=== PATIENT | female | born 1960 | race Caucasian/White ===

== ENCOUNTER 2020-05-19 15:38 | Observation (INO) | payer MEDICARE, MEDICAID ==
[~2020-05-19] VITALS: Ht 157 cm; Wt 120.5 kg
[2020-05-19] VITALS (10 sets, daily range): BP systolic 107–168; BP diastolic 81–100
--- NOTE | 2020-05-19 15:40 | ED General ---
General Stated Complaint: CHEST PAIN Source of Information: Patient History of Present Illness Date Seen by Provider: May 19, 2020 Time Seen by Provider: 15:39 Initial Comments Patient is a 59-year-old female with past medical history of hypertension who comes to the emergency department today complaining of chest pain. She complains of sternal chest pain with onset about 1 hour prior to presentation. Symptoms began while she was walking crossed her living room. Her pain is improved with rest and worsens with activity. Pain radiates through to the back but no radiation to the jaw, shoulder, or arms. She denies ever having pain similar to this in the past. She did not write out in a sweat. She had no palpitations or lightheadedness but did feel mildly short of breath. This also improved with activity. She has a known history of COPD. Denies personal history of coronary artery disease. She used to be a smoker but quit many years earlier. No recent illness. No fever. Allergies and Home Medications Allergies Coded Allergies: No Known Drug Allergies (Unverified , 05/19/20) Home Medications Furosemide 40 Mg Tablet, 40 MG PO DAILY, (Reported) Lisinopril 40 Mg Tablet, 40 MG PO DAILY, (Reported) Multivitamin 1 Each Capsule, 1 EACH PO DAILY, (Reported) Potassium Chloride 20 Meq Tablet.er, 20 MEQ PO DAILY, (Reported) [Vitamin D] , 2,000 INTLU PO DAILY, (Reported) Patient Home Medication List Home Medication List Reviewed: Yes Review of Systems Review of Systems Constitutional: no symptoms reported EENTM: no symptoms reported Respiratory: no symptoms reported Cardiovascular: see HPI Gastrointestinal: no symptoms reported Genitourinary: no symptoms reported Musculoskeletal: no symptoms reported Skin: no symptoms reported All Other Systems Reviewed Negative Unless Noted: Yes Physical Exam Vital Signs Vital Signs - First Documented Capillary Refill : Height, Weight, BMI Height: '" Weight: lbs. oz. kg; BMI Method: General Appearance: No Apparent Distress, WD/WN Neck: Full Range of Motion Respiratory: Chest Non Tender, Lungs Clear Cardiovascular: Regular Rate, Rhythm Gastrointestinal: Normal Bowel Sounds Neurologic/Psychiatric: Alert, Oriented x3 Skin: Normal Color, Warm/Dry Progress/Results/Core Measures Suspected Sepsis SIRS Temperature: Pulse: Respiratory Rate: Laboratory Tests 05/19/20 15:48: White Blood Count 7.4 Blood Pressure / Mean: Laboratory Tests 05/19/20 15:48: Creatinine 0.89, Platelet Count 207 Results/Orders Lab Results Laboratory Tests Test 05/19/20 15:48 Range/Units White Blood Count 7.4 4.3-11.0 10^3/uL Red Blood Count 4.13 L 4.35-5.85 10^6/uL Hemoglobin 13.6 11.5-16.0 G/DL Hematocrit 40 35-52 % Mean Corpuscular Volume 98 80-99 FL Mean Corpuscular Hemoglobin 33 25-34 PG Mean Corpuscular Hemoglobin Concent 34 32-36 G/DL Red Cell Distribution Width 12.5 10.0-14.5 % Platelet Count 207 130-400 10^3/uL Mean Platelet Volume 9.9 7.4-10.4 FL Neutrophils (%) (Auto) 55 42-75 % Lymphocytes (%) (Auto) 33 12-44 % Monocytes (%) (Auto) 6 0-12 % Eosinophils (%) (Auto) 4 0-10 % Basophils (%) (Auto) 1 0-10 % Neutrophils # (Auto) 4.1 1.8-7.8 X 10^3 Lymphocytes # (Auto) 2.5 1.0-4.0 X 10^3 Monocytes # (Auto) 0.4 0.0-1.0 X 10^3 Eosinophils # (Auto) 0.3 0.0-0.3 10^3/uL Basophils # (Auto) 0.1 0.0-0.1 10^3/uL D-Dimer 0.33 0.00-0.49 UG/ML Sodium Level 138 135-145 MMOL/L Potassium Level 4.4 3.6-5.0 MMOL/L Chloride Level 101 98-107 MMOL/L Carbon Dioxide Level 26 21-32 MMOL/L Anion Gap 11 5-14 MMOL/L Blood Urea Nitrogen 15 7-18 MG/DL Creatinine 0.89 0.60-1.30 MG/DL Estimat Glomerular Filtration Rate > 60 BUN/Creatinine Ratio 17 Glucose Level 109 H 70-105 MG/DL Calcium Level 8.9 8.5-10.1 MG/DL Troponin I < 0.30 <0.30 NG/ML My Orders Orders - TONA DEVI DO Ed Iv/Invasive Line Start (05/19/20 15:40) Cbc With Automated Diff (05/19/20 15:40) Basic Metabolic Panel (05/19/20 15:40) Troponin I Fs (05/19/20 15:40) Ekg Tracing (05/19/20 15:40) Chest 1 View Ap/Pa Only (05/19/20 15:40) Fibrin Degradation Products (05/19/20 15:41) Aspirin Chewable Tablet (Baby Aspirin Ch (05/19/20 16:15) Antacid Suspension (Mylanta Suspension (05/19/20 16:15) Lidocaine 2% Pf 5 Ml (Xylocaine 2% Pf) (05/19/20 16:15) Famotidine Injection (Pepcid Injection) (05/19/20 16:15) Lidocaine 2% Viscous 15 Ml (Xylocaine Vi (05/19/20 16:15) Lidocaine 2% Viscous 15 Ml (Xylocaine Vi (05/19/20 16:19) Probnp Fs (05/19/20 16:52) Ekg Tracing (05/19/20 17:06) Medications Given in ED Current Medications Medications Dose Ordered Sig/Kae Route Start Time Stop Time Status Last Admin Dose Admin Al Hydrox/Mg Hydrox/Simethicone 30 ml ONCE ONCE PO 05/19/20 16:15 05/19/20 16:16 DC 05/19/20 16:25 30 ML Aspirin 325 mg ONCE ONCE PO 05/19/20 16:15 05/19/20 16:16 DC 05/19/20 16:24 324 MG Famotidine 20 mg ONCE ONCE IVP 05/19/20 16:15 05/19/20 16:25 DC 05/19/20 16:24 20 MG Lidocaine HCl 5 ml ONCE ONCE PO 05/19/20 16:15 05/19/20 16:22 DC 05/19/20 16:25 5 ML Vital Signs/I&O 05/19/20 05/19/20 15:40 15:40 Temp 37.2 Pulse 87 Resp 20 B/P (MAP) 181/111 (134) Pulse Ox 96 O2 Delivery Room Air Room Air Capillary Refill : Progress Note : Time: 15:55 Progress Note Patient seen and examined. c/o exertional CP that started one hour prior to presentation. EKG is negative for findings concerning for ischemia. Standard ACS work up ordered and will give ASA along with pepcid and GI cocktail. 17:00: All initial results are completed. D-dimer is not elevated. Troponin is not elevated. Chest x-ray does not reveal acute cause for her symptoms. Her lungs continue to be clear. Patient is ambulated about the department and becomes visibly dyspneic. She has onset again of sternal chest pain. She does not desaturate. Repeat EKG is completed immediately upon return to her room but no acute ST changes are present. Her pain then subsequently improves again while she is at rest. Workup thus far is reassuring but with recurrent chest pain on exertion, patient would meet admission criteria. I spoke to Dr. Hernandez who was willing to accept the patient at [facility] in [place] for admission. I also spoke to the towel folder filtration supervisor, Dr. Chavarria, to notify of nonemergent consultation for this patient. Patient will be transferred via EMS. All results are explained to her and all of her questions are answered. She is agreeable to the plan of care. ECG Initial ECG Impression Date: May 19, 2020 Initial ECG Impression Time: 15:45 Initial ECG Rate: 84 Initial ECG Rhythm: Normal Sinus Initial ECG Impression: Normal Initial ECG Comparisson: No Previous ECG Available Departure Communication (Admissions) Time/Spoke to Admitting Phy: 17:00 Dr. Hernandez Impression Primary Impression: Chest pain Additional Impression: Chest pain on exertion Disposition: ADMITTED INPATIENT Condition: Stable Admissions Decision to Admit Reason: Admit from ER (General) Decision to Admit/Date: May 19, 2020 Time/Decision to Admit Time: 17:00 TONA DEVI DO May 19, 2020 15:40
[2020-05-19 16:07] LABS: BASOPHILS # (AUTO) 0.1 10^3/uL (0.0-0.1); BASOPHILS % (AUTO) 1 % (0-10); EOSINOPHILS # (AUTO) 0.3 10^3/uL (0.0-0.3); EOSINOPHILS % (AUTO) 4 % (0-10); HEMATOCRIT 40 % (35-52); HEMOGLOBIN 13.6 G/DL (11.5-16.0); LYMPHOCYTES # (AUTO) 2.5 X 10^3 (1.0-4.0); LYMPHOCYTES % (AUTO) 33 % (12-44); MEAN CORPUSCULAR HEMOGLOBIN 33 PG (25-34); MEAN CORPUSCULAR HGB CONC 34 G/DL (32-36); MEAN CORPUSCULAR VOLUME 98 FL (80-99); MEAN PLATELET VOLUME 9.9 FL (7.4-10.4); MONOCYTES # (AUTO) 0.4 X 10^3 (0.0-1.0); MONOCYTES % (AUTO) 6 % (0-12); NEUTROPHILS # (AUTO) 4.1 X 10^3 (1.8-7.8); NEUTROPHILS % (AUTO) 55 % (42-75); PLATELET COUNT 207 10^3/uL (130-400); RED CELL DISTRIBUTION WIDTH 12.5 % (10.0-14.5); WHITE BLOOD COUNT 7.4 10^3/uL (4.3-11.0)
[2020-05-19] MEDS ORDERED: LISI40TA PO (16:13)
[2020-05-19] MEDS ORDERED: TIOT4MIS2 INH (16:13)
[2020-05-19] MEDS ORDERED: FURO40TA4 PO (16:13)
[2020-05-19] MEDS ORDERED: POTA-51 PO (16:13)
[2020-05-19] MEDS ORDERED: Vitamin D PO (16:13)
[2020-05-19] MEDS ORDERED: FLUT1BLS12 INH (16:13)
[2020-05-19] MEDS ORDERED: MULT1CAP27 PO (16:13)
[2020-05-19] MEDS ORDERED: LIDOCAINE PF 2% 5 ML (XYLOCAINE) VIAL INH ONE (16:15)
[2020-05-19] MEDS ORDERED: ANTACID SUSP 30 ML UDC (MYLANTA) PO ONE (16:15)
[2020-05-19] MEDS ORDERED: FAMOTIDINE 20MG/2ML IV (PEPCID) IVP ONE (16:15)
[2020-05-19] MEDS ORDERED: LIDOCAINE 2% VISCOUS 15 ML UDC PO ONE (16:15)
[2020-05-19] MEDS ORDERED: ASPIRIN 81 MG CHEW (CHILDREN'S ASA) PO ONE (16:15)
--- NOTE | 2020-05-19 16:16 | Diagnostic Imaging Report ---
EXAM: CHEST 1 VIEW AP/PA ONLY INDICATION: Chest pain. COMPARISON: None. FINDINGS: Normal heart size and central pulmonary vascularity. No focal pulmonary opacity, pleural effusion or pneumothorax. Calcified aorta. No acute osseous finding. IMPRESSION: No acute cardiopulmonary finding. Dictated by: Dictated on workstation # [id number]
[2020-05-19] MEDS ORDERED: LIDOCAINE 2% VISCOUS 15 ML UDC ONE (16:19)
[2020-05-19 16:25] LABS: BUN/CREATININE RATIO 17; CALCIUM 8.9 MG/DL (8.5-10.1); CARBON DIOXIDE 26 MMOL/L (21-32); CHLORIDE 101 MMOL/L (98-107); CREATININE SERUM 0.89 MG/DL (0.60-1.30); GFR ESTIMATED > 60; GLUCOSE 109 MG/DL (70-105); POTASSIUM 4.4 MMOL/L (3.6-5.0); SODIUM 138 MMOL/L (135-145)
[2020-05-19] MEDS ORDERED: Prevacid (16:45)
--- NOTE | 2020-05-19 16:45 | NUR ---
Patient was assisted up to ambulate as experiencing no chest pain and planning a Troponin in 1 hr. Pt was ambulated while monitored at approx 65 [address] hallway pt incurs chest pain returning and becoming SOA. Pt returned to room stopping mid-way to sit in chair. Mild ST depression viewed on ambulation.
--- NOTE | 2020-05-19 16:50 | NUR ---
Dr Mccabe to room to re-assess.
--- NOTE | 2020-05-19 18:00 | NUR ---
Call to EMS Transfer Line and request patient transfer to [facility] CU 7 Overflow Cardiac Stepdown. EMS report the EMS crew out on a call are the next crew up for a transfer and delay until that unit is available.
[2020-05-19 18:04] LABS: INR 0.9 (0.8-1.4)
[2020-05-19] MEDS ORDERED: NITROGLYCERIN 0.4 MG SL TABS BTL 25'S SL PRN (20:30)
[2020-05-19] MEDS ORDERED: morphine INJ 4 MG/ML 1 ML (VIAL/SYRINGE) IV PRN (20:30)
[2020-05-19] MEDS ORDERED: ONDANSETRON 4 MG/2 ML (SDV) Z0FRAN IVP PRN (20:30)
[2020-05-19] MEDS ORDERED: CATHETER FLUSH 10 ML SYR IV PRN (20:45)
[2020-05-19] MEDS: NS IV 1000 ML 1,000 ML IV SCH (23:50)
[2020-05-20] VITALS (11 sets, daily range): BP systolic 134–151; BP diastolic 72–97
[2020-05-20] MEDS ORDERED: ACETAMINOPHEN 325 MG TABLET ONE (02:48)
[2020-05-20] MEDS ORDERED: ACETAMINOPHEN 325 MG TABLET PO PRN (03:00)
[2020-05-20 03:38] LABS: BASOPHILS % (AUTO) 1 % (0-10); EOSINOPHILS # (AUTO) 0.3 10^3/uL (0.0-0.3); EOSINOPHILS % (AUTO) 4 % (0-10); HEMATOCRIT 40 % (35-52); HEMOGLOBIN 13.4 G/DL (11.5-16.0); LYMPHOCYTES % (AUTO) 30 % (12-44); MEAN CORPUSCULAR HEMOGLOBIN 33 PG (25-34); MEAN CORPUSCULAR HGB CONC 34 G/DL (32-36); MEAN CORPUSCULAR VOLUME 99 FL (80-99); MEAN PLATELET VOLUME 10.2 FL (7.4-10.4); MONOCYTES # (AUTO) 0.3 X 10^3 (0.0-1.0); MONOCYTES % (AUTO) 5 % (0-12); NEUTROPHILS # (AUTO) 4.1 X 10^3 (1.8-7.8); NEUTROPHILS % (AUTO) 61 % (42-75); PLATELET COUNT 179 10^3/uL (130-400); RED CELL DISTRIBUTION WIDTH 12.6 % (10.0-14.5); WHITE BLOOD COUNT 6.7 10^3/uL (4.3-11.0)
[2020-05-20 04:05] LABS: ALANINE AMINOTRANSFERASE 41 U/L (0-55); ALBUMIN 3.5 GM/DL (3.2-4.5); ALKALINE PHOSPHATASE 96 U/L (40-136); BILIRUBIN,TOTAL 0.6 MG/DL (0.1-1.0); BUN/CREATININE RATIO 17; CALCIUM 8.8 MG/DL (8.5-10.1); CARBON DIOXIDE 23 MMOL/L (21-32); CHLORIDE 105 MMOL/L (98-107); CHOLESTEROL 203 MG/DL (< 200); CREATININE SERUM 0.86 MG/DL (0.60-1.30); GFR ESTIMATED > 60; GLUCOSE 87 MG/DL (70-105); HDL CHOLESTEROL 73 MG/DL (40-60); POTASSIUM 3.9 MMOL/L (3.6-5.0); SODIUM 140 MMOL/L (135-145); TOTAL PROTEIN 6.5 GM/DL (6.4-8.2); TRIGLYCERIDES 127 MG/DL (<150); VLDL CHOLESTEROL 25 MG/DL (5-40)
[2020-05-20] MEDS: ASPIRIN E.C. 325 MG (ECOTRIN) TABLET PO SCH (07:42)
--- NOTE | 2020-05-20 08:41 | Consultation-Cardiology ---
HPI-Cardiology Cardiology Consultation: Date of Consultation 05/20/20 Time Seen by a Provider: 08:45 Date of Admission 05-19-2020 Attending Physician Katia Hernandez MD Admitting Physician Aron Mason MD Consulting Physician Vivi Chavarria MD HPI: Chief Complaint: Chest pain Ms. Rodriguez is a 59 year old female who presented to [facility] ED with c/o CP which started yesterday while walking across her living room floor. She describes it as a sharp stabbing pain, left sided which radiated through to her back. Mod in intensity. She reports it relieved after a few minutes of resting . She has chronic mild to mod exertional dyspnea which was somewhat worse yesterday. She denies any palpitations yesterday, but does reports she does have episodes of palpitations at night which have woken her up in the past. She has not been evaluated for sleep apnea. She denies any diaphoresis. She has chronic bilat LE swelling which is unchanged in the recent past. No c/o n/v/d. No c/o fever or chills. Review of Systems-Cardiology Review of Systems Constitutional: No chills, No fever, No malaise Eyes: No vision change Ears/Nose/Throat: No epistaxis, No recent hearing loss Respiratory: As described under HPI Cardiovascular: As described under HPI Gastrointestinal: No constipation, No diarrhea, No nausea Genitourinary: No dysuria; hematuria Musculoskeletal: no symptoms reported Skin: No rash on exposed areas, No ulcerations on exposed areas Psychiatric/Neurological: No anxiety, No depression, No seizure, No focal weakness Hematologic: No bleeding abnormalities All Other Systems Reviewed Negative Unless Noted: Yes XNN-[id number]-Eefohz Hx Patient Social History Alcohol Use: Regular Use Recreational Drug Use: No Smoking Status: Former Smoker Type Used: Cigarettes Recent Foreign Travel: No Recent Infectious Disease Expo: No Hospitalization with Isolation: Denies Past Medical History PMH As described under Assessment. Family Medical History Family Medical History: She does not know her biological family history d/t being adopted. Allergies and Home Medications Allergies Coded Allergies: No Known Drug Allergies (Unverified , 05/19/20) Home Medications Albuterol Sulfate 18 Gm Hfa.aer.ad, 2 PUFF INH Q6H PRN for SHORTNESS OF BREATH, (Reported) Cholecalciferol (Vitamin D3) 50 Mcg Capsule, 50 MCG PO HS, (Reported) Fluticasone Propion/Salmeterol 1 Each Blst.w.dev, 1 PUFF INH BID, (Reported) Furosemide 40 Mg Tablet, 40 MG PO HS, (Reported) Lansoprazole 15 Mg Capsule.dr, 15 MG PO HS, (Reported) Lisinopril 40 Mg Tablet, 40 MG PO HS, (Reported) Multivitamin 1 Each Capsule, 1 EACH PO HS, (Reported) Naproxen Sodium 220 Mg Tablet, 220 MG PO Q8H PRN for PAIN-MILD (1-4), (Reported) Potassium Chloride 10 Meq Tablet.er, 20 MEQ PO HS, (Reported) TAKES 2 (10MEQ) TABS Tiotropium Hines 4 Gm Mist.inhal, 2 PUFF INH HS, (Reported) Physical Exam-Cardiology Physical Exam Vital Signs/I&O 05/21/20 05/21/20 05/21/20 05/21/20 04:40 07:04 08:00 08:00 Temp 36.5 36.6 Pulse 85 63 65 Resp 18 16 B/P (MAP) 169/79 (109) 191/96 (127) Pulse Ox 97 96 96 O2 Delivery Room Air Room Air Room Air 05/21/20 12:37 Pulse 90 Resp 16 B/P (MAP) 168/78 (108) Pulse Ox 97 O2 Delivery Room Air 05/21/20 00:00 Intake Total 1950 ml Balance 1950 ml Capillary Refill : Less Than 3 Seconds Constitutional: AAO x 3, well-developed, well-nourished HEENT: PERRL, hearing is well preserved, oral hygience is good Neck: No carotid bruit; carotid pulses are 2 + bilaterally Respiratory: No accessory muscle use, No respiratory distress; chest expansion is symmetric, chest is bilaterally symmetric, lungs clear to auscultation Cardiovascular: regular rate-rhythm; No JVD; S1 and S2 Gastrointestinal: No tender; soft, audible bowel sounds Extremities: no lower extremity edema bilateral Neurologic/Psychiatric: grossly intact (moves all extremities) Skin: No rash on exposed areas, No ulcerations on exposed areas Data Review Labs Laboratory Tests 05/21/20 04:55: Sodium Level 140, Potassium Level 4.3, Chloride Level 109H, Carbon Dioxide Level 23, Anion Gap 8, Blood Urea Nitrogen 12, Creatinine 0.78, Estimat Glomerular Filtration Rate > 60, BUN/Creatinine Ratio 15, Glucose Level 94, Calcium Level 8.1L, Magnesium Level 1.7, Thyroid Stimulating Hormone (TSH) 2.45 Radiology NAME: CONCHIS RODRIGUEZ MED REC#: [id number] PT STATUS: REG ER : 1960 PHYSICIAN: TONA DEVI DO ADMIT DATE: 05/19/20/ER FS Signed Date of Exam:05/19/20 CHEST 1 VIEW AP/PA ONLY EXAM: CHEST 1 VIEW AP/PA ONLY INDICATION: Chest pain. COMPARISON: None. FINDINGS: Normal heart size and central pulmonary vascularity. No focal pulmonary opacity, pleural effusion or pneumothorax. Calcified aorta. No acute osseous finding. IMPRESSION: No acute cardiopulmonary finding. Dictated by: Dictated on workstation # [id number] Dict: 05/19/20 1612 Trans: 05/19/20 1639 PJE [id number] Interpreted by: EBONY SHEEHAN MD Electronically signed by: EBONY SHEEHAN MD 05/19/20 1639 ECG Impression ECG Initial ECG Rhythm: Normal Sinus A/P-Cardiology Assessment/Admission Diagnosis Chest pain of undetermined etiology HTN HLD COPD Former tobaccoism Palpitations of undetermined etiology Symptoms suggestive of sleep apnea GERD IBS Morbid obesity Discussion and Recomendations Chest discomfort of undetermined etiology - no evidence of ACS Based on c/o and risk factors we advise MPI to eval perfusion We advise echo to eval structure and function Continue current medication regimen Advise out sleep study for suspected sleep apnea Monitor lab Further recs will be based on her hospital course We would like to thank medical services for this consult Clinical Quality Measures AMI/AHF: ASA po Prior to arrival: No DVT/VTE Risk/Contraindication: Risk Factor Score Per Nursin RFS Level Per Nursing on Admit: 4+=Very High ADRIANNE TALAVERA May 20, 2020 08:41
[2020-05-20] MEDS: NS IV 1000 ML 1,000 ML IV SCH ×2 (09:25→20:00)
[2020-05-20] MEDS ORDERED: REGADENOSON 0.4 MG/5 ML SYR (LEXISCAN) IV ONE (09:45)
[2020-05-20] MEDS: ENOXAPARIN 40 MG/0.4 ML (LOVENOX) SYR SC SCH ×2 (10:08→20:02)
--- NOTE | 2020-05-20 10:32 | History & Physical-Hospitalist ---
SAM SORENSEN MED STUDENT 05/20/20 1032: History of Present Illness HPI/Chief Complaint CC: Chest pain HPI: Andria Avelar is a 59 yo F with hx of obesity and COPD who was seen in the ER yesterday for sharp sternal chest pain. Her pain worsened with exertion and improved with rest and nitroglycerine. Testing there including CBC, CMP, BNP, EKGs, Troponin, and CXR, was unconcerning. Because of the typical CP presentation and the lack of prior cardiac workup the patient was hospitalized. The patient states she has not had chest pain since being in the ER yesterday. She denies all complaints including SOB, nausea, vomiting, and abdominal pain. Source: patient, EMS notes reviewed Date Seen 05/20/20 Time Seen by a Provider: 09:10 Attending Physician Katia Hernandez MD PCP SelfAron MD Referring Physician Date of Admission May 19, 2020 at 19:50 Home Medications & Allergies Home Medications Reviewed patient Home Medication Reconciliation performed by pharmacy medication reconciliations telegraph repeater technician and/or nursing. Per pt and chart review, Furuosemide 40mg QD, Lisinopril 40mg QD Patients Allergies have been reviewed. Per patient, NKDA Allergies Allergies Coded Allergies No Known Drug Allergies (Unverified05/19/20) Past Pzracia-Wdwxam-Ymhots Hx Patient Social History Alcohol Use: Regular Use Number of Drinks Today: 0 Alcohol Beverage of Choice: Rum Recreational Drug Use: No Smoking Status: Former Smoker Former Smoker, Quit: Sep 27, 2004 Type Used: Cigarettes Recent Foreign Travel: No Contact w/other who traveled: No Recent Hopitalizations: No Recent Infectious Disease Expo: No Seasonal Allergies Seasonal Allergies: No Past Medical History Surgeries: Section, Orthopedic, Tubal Ligation Respiratory: COPD Cardiac: Chronic Edema/Swelling, Hypertension History of Blood Disorders: No Family History Other Conditions/Hx (Biologic family hx unknown; pt adopted.) Review of Systems Cardiovascular: chest pain (absent since yesterday) Physical Exam Physical Exam Vital Signs Vital Signs - First Documented Capillary Refill : Less Than 3 Seconds Height, Weight, BMI Height: '" Weight: lbs. oz. kg; 47.46 BMI Method: HEENT: PERRL/EOMI, TMs Normal, Pharynx Normal Neck: Normal Inspection Respiratory: Chest Non Tender, Lungs Clear, Normal Breath Sounds, No Accessory Muscle Use, No Respiratory Distress Cardiovascular: Regular Rate, Rhythm, No Gallop, No JVD, No Murmur, Normal Peripheral Pulses, Other (Edema noted. ) Extremity: Normal Capillary Refill, Normal Inspection Neurologic/Psychiatric: Alert, Oriented x3, Normal Mood/Affect Skin: Normal Color, Warm/Dry Results Results/Procedures Labs Laboratory Tests 05/19/20 15:48 05/20/20 03:15 Patient resulted labs reviewed. Assessment/Plan Admission Diagnosis chest pain Assessment and Plan Assessment: 1. Chest pain 2. chronic LE edema 3. HTN on lisinopril 4. obesity 5. increased cholesterol, LDL, HDL Plan: 1. Continue monitoring labs 2. treat any emergent issues including chest pain 3. plan for discharge home, dependent on cardiology's assessment 4. likely begin therapy for prophylaxis of cardiac events per cardiology's recommendations Clinical Quality Measures AMI/AHF: ASA po Prior to arrival: No DVT/VTE Risk/Contraindication: Risk Factor Score Per Nursin RFS Level Per Nursing on Admit: 4+=Very High SHO PICKERING DO 05/20/20 1312: History of Present Illness HPI/Chief Complaint CC: Chest pain HPI: This is a 59yoWM clinic pt of Dr. Mason who has a history of COPD from former smoking and CHF on Lasix who presents to the ER with chest pain. Troponin was negative, and cardiology was consulted and will perform a stress test tomorrow. She denies any significant chest pain and is hungry. She appears to have SERGIO. Source: patient, RN/MD Exam Limitations: no limitations Date Seen 05/20/20 Time Seen by a Provider: 09:00 Past Bgupopx-Zazpmj-Pizdwo Hx Past Med/Social Hx: Reviewed Nursing Past Med/Soc Hx, Reviewed and Corrections made Patient Social History Marrital Status: single Employed/Student: unemployed, retired Alcohol Use: Denies Use Smoking Status: Never a Smoker Past Medical History Cardiac: High Cholesterol, Hypertension Review of Systems Constitutional: see HPI EENTM: see HPI Respiratory: see HPI Cardiovascular: see HPI Gastrointestinal: see HPI Genitourinary: see HPI Musculoskeletal: see HPI Skin: see HPI Psychiatric/Neurological: See HPI Physical Exam Physical Exam General Appearance: No Apparent Distress, Chronically ill, Obese Eyes: Right Eye Normal Inspection, Right Eye PERRL HEENT: PERRL/EOMI, Normal ENT Inspection, Pharynx Normal, Moist Mucous Membranes Neck: Full Range of Motion, Normal Inspection, Non Tender Respiratory: Chest Non Tender, Lungs Clear, Normal Breath Sounds, No Accessory Muscle Use, No Respiratory Distress Cardiovascular: Regular Rate, Rhythm, No Edema, No Gallop, No JVD, No Murmur, Normal Peripheral Pulses Gastrointestinal: Normal Bowel Sounds, No Organomegaly, No Pulsatile Mass, Non Tender, Soft Back: Normal Inspection, No CVA Tenderness, No Vertebral Tenderness Extremity: Normal Capillary Refill, Normal Inspection, Normal Range of Motion, Non Tender, No Calf Tenderness, No Pedal Edema Neurologic/Psychiatric: Alert, Oriented x3, No Motor/Sensory Deficits, Normal Mood/Affect Skin: Normal Color, Warm/Dry Lymphatic: No Adenopathy Assessment/Plan Admission Diagnosis Assessment: Chest pain CHF COPD Former smoker Chronic edema Plan: Cardiology appreciated Stress tests tomorrow Advanced diet today Monitor closely Needs sleep study Admission Status: Observation Diagnosis/Problems Diagnosis/Problems (1) Chest pain on exertion Status: Acute Supervisory-Addendum Brief Verification & Attestation Participated in pt care: history, MDM, physical Personally performed: exam, history, MDM, supervision of care Care discussed with: Medical Student Procedures: n/a Results interpretation: Verified all documentation Verification and Attestation of Medical Student E/M Service A medical student performed and documented this service in my presence. I reviewed and verified all information documented by the medical student and made modifications to such information, when appropriate. I personally performed the physical exam and medical decision making. Sho Pickering, May 20, 2020,20:59 SAM SORENSEN MED STUDENT May 20, 2020 10:32 SHO PICKERING DO May 20, 2020 13:12
[2020-05-20] MEDS ORDERED: LANS15CA PO (10:46)
[2020-05-20] MEDS ORDERED: CHOL20003 PO (10:46)
[2020-05-20] MEDS ORDERED: POTA10TA PO (10:46)
--- NOTE | 2020-05-20 10:51 | NUR ---
SPOKE WITH THE PT AND WENT THRU THE EXT MED HISTORY TO COMPLETE THE MED REC PT WAS ABLE TO LIST ALL HER MEDICATIONS WELL WHEN/HOW SHE TAKES EACH- ALL HER INFORMATION MATCHED THE EXT MED HISTORY OTC MEDS: VIT D MTV ALEVE PREVACID
[2020-05-20] MEDS ORDERED: ALBU18HF2 INH (10:53)
[2020-05-20] MEDS ORDERED: NAPR220T66 PO (10:54)
--- NOTE | 2020-05-20 11:29 | NUR ---
Pt is [facility]. Declined sacraments for today hoping to go home tomorrow. Trucking Manager offered blessing.
--- NOTE | 2020-05-20 12:28 | Consultation-Cardiology ---
HPI-Cardiology Cardiology Consultation: Date of Consultation 05/20/20 Time Seen by a Provider: 09:15 Date of Admission Attending Physician Katia Hernandez MD Admitting Physician Aron Mason MD Consulting Physician ELICIA DOS SANTOS MD, MA, FACP, FACC, FSCAI, CCDS HPI: Chief Complaint: CC: Chest pain HPI Ms. Avelar is a 59 year old female who presented to [facility] ED with c/o CP which started yesterday while walking across her living room floor. She describes it as a sharp stabbing pain, left sided which radiated through to her back. Mod in intensity. She reports it relieved after a few minutes of resting. She has chronic mild to mod exertional dyspnea which was somewhat worse yesterday. She denies any palpitations yesterday, but does reports she does have episodes of palpitations at night which have woken her up in the past. She has not been evaluated for sleep apnea. She denies any diaphoresis. She has chronic bilat LE swelling which is unchanged in the recent past. No c/o n/v/d. No c/o fever or chills. Review of Systems-Cardiology Review of Systems Constitutional: No chills, No fever, No malaise Eyes: No vision change Ears/Nose/Throat: No epistaxis, No recent hearing loss Respiratory: As described under HPI Cardiovascular: As described under HPI Gastrointestinal: No constipation, No diarrhea, No nausea Genitourinary: No dysuria; hematuria Musculoskeletal: no symptoms reported Skin: No rash on exposed areas, No ulcerations on exposed areas Psychiatric/Neurological: No anxiety, No depression, No seizure, No focal weakness Hematologic: No bleeding abnormalities All Other Systems Reviewed Negative Unless Noted: Yes [id number] Hx Patient Social History Alcohol Use: Regular Use Recreational Drug Use: No Smoking Status: Former Smoker Type Used: Cigarettes Recent Foreign Travel: No Recent Infectious Disease Expo: No Hospitalization with Isolation: Denies Past Medical History PMH As described under Assessment. Family Medical History Family Medical History: She does not know her biological family history d/t being adopted. Allergies and Home Medications Allergies Coded Allergies: No Known Drug Allergies (Unverified , 05/19/20) Home Medications Albuterol Sulfate 18 Gm Hfa.aer.ad, 2 PUFF INH Q6H PRN for SHORTNESS OF BREATH, (Reported) Cholecalciferol (Vitamin D3) 50 Mcg Capsule, 50 MCG PO HS, (Reported) Fluticasone Propion/Salmeterol 1 Each Blst.w.dev, 1 PUFF INH BID, (Reported) Furosemide 40 Mg Tablet, 40 MG PO HS, (Reported) Lansoprazole 15 Mg Capsule.dr, 15 MG PO HS, (Reported) Lisinopril 40 Mg Tablet, 40 MG PO HS, (Reported) Multivitamin 1 Each Capsule, 1 EACH PO HS, (Reported) Naproxen Sodium 220 Mg Tablet, 220 MG PO Q8H PRN for PAIN-MILD (1-4), (Reported) Potassium Chloride 10 Meq Tablet.er, 20 MEQ PO HS, (Reported) TAKES 2 (10MEQ) TABS Tiotropium [place] 4 Gm Mist.inhal, 2 PUFF INH HS, (Reported) Patient Home Medication List Home Medication List Reviewed: Yes Physical Exam-Cardiology Physical Exam Vital Signs/I&O 05/20/20 05/20/20 05/20/20 05/20/20 01:00 01:00 02:00 03:00 Pulse 80 80 76 80 Resp 20 12 22 B/P (MAP) 136/78 (97) 142/80 (100) 151/88 (109) Pulse Ox 91 97 98 O2 Delivery Room Air Room Air Room Air 05/20/20 05/20/20 05/20/20 05/20/20 03:01 03:03 04:00 05:00 Temp 36.7 Pulse 72 68 Resp 17 13 B/P (MAP) 148/85 (106) 143/74 (97) Pulse Ox 95 93 94 O2 Delivery Room Air Room Air Room Air 05/20/20 05/20/20 05/20/20 05/20/20 06:41 07:51 08:00 08:04 Temp 35.8 Pulse 67 63 Resp 14 B/P (MAP) 136/81 (99) Pulse Ox 93 93 O2 Delivery Room Air Room Air 05/20/20 05/20/20 05/20/20 08:39 11:30 11:37 Temp 36.7 Pulse 61 Resp 16 B/P (MAP) 134/97 (109) Pulse Ox 89 95 95 O2 Delivery Room Air Room Air Room Air 05/20/20 00:00 Intake Total 100 ml Balance 100 ml Capillary Refill : Less Than 3 Seconds Constitutional: AAO x 3, well-developed, well-nourished HEENT: PERRL, hearing is well preserved, oral hygience is good Neck: No carotid bruit; carotid pulses are 2 + bilaterally Respiratory: No accessory muscle use, No respiratory distress; chest expansion is symmetric, chest is bilaterally symmetric, lungs clear to auscultation Cardiovascular: regular rate-rhythm; No JVD; S1 and S2 Gastrointestinal: No tender; soft, audible bowel sounds Extremities: no lower extremity edema bilateral Neurologic/Psychiatric: grossly intact (moves all extremities) Skin: No rash on exposed areas, No ulcerations on exposed areas Data Review Labs Laboratory Tests 05/19/20 14:58: Prothrombin Time 12.0L, INR Comment 0.9, Activated Partial Thromboplast Time 30 05/19/20 15:48: White Blood Count 7.4, Red Blood Count 4.13L, Hemoglobin 13.6, Hematocrit 40, Mean Corpuscular Volume 98, Mean Corpuscular Hemoglobin 33, Mean Corpuscular Hemoglobin Concent 34, Red Cell Distribution Width 12.5, Platelet Count 207, Mean Platelet Volume 9.9, Neutrophils (%) (Auto) 55, Lymphocytes (%) (Auto) 33, Monocytes (%) (Auto) 6, Eosinophils (%) (Auto) 4, Basophils (%) (Auto) 1, Neutrophils # (Auto) 4.1, Lymphocytes # (Auto) 2.5, Monocytes # (Auto) 0.4, Eo sinophils # (Auto) 0.3, Basophils # (Auto) 0.1, D-Dimer 0.33, Sodium Level 138, Potassium Level 4.4, Chloride Level 101, Carbon Dioxide Level 26, Anion Gap 11, Blood Urea Nitrogen 15, Creatinine 0.89, Estimat Glomerular Filtration Rate > 60, BUN/Creatinine Ratio 17, Glucose Level 109H, Calcium Level 8.9, Troponin I < 0.30, Pro-B-Type Natriuretic Peptide 26.7 05/19/20 22:12: Troponin I < 0.028 05/20/20 03:15: White Blood Count 6.7, Red Blood Count 4.03L, Hemoglobin 13.4, Hematocrit 40, Mean Corpuscular Volume 99, Mean Corpuscular Hemoglobin 33, Mean Corpuscular Hemoglobin Concent 34, Red Cell Distribution Width 12.6, Platelet Count 179, Mean Platelet Volume 10.2, Neutrophils (%) (Auto) 61, Lymphocytes (%) (Auto) 30, Monocytes (%) (Auto) 5, Eosinophils (%) (Auto) 4, Basophils (%) (Auto) 1, Neutrophils # (Auto) 4.1, Lymphocytes # (Auto) 2.0, Monocytes # (Auto) 0.3, Eosinophils # (Auto) 0.3, Basophils # (Auto) 0.0, Sodium Level 140, Potassium Level 3.9, Chloride Level 105, Carbon Dioxide Level 23, Anion Gap 12, Blood Urea Nitrogen 15, Creatinine 0.86, Estimat Glomerular Filtration Rate > 60, BUN/Creatinine Ratio 17, Glucose Level 87, Calcium Level 8.8, Troponin I < 0.028, Corrected Calcium 9.2, Total Bilirubin 0.6, Aspartate Amino Transf (AST/SGOT) 32, Alanine Aminotransferase (ALT/SGPT) 41, Alkaline Phosphatase 96, Total Protein 6.5, Albumin 3.5, Triglycerides Level 127, Cholesterol Level 203H, LDL Cholesterol Direct 130H, VLDL Cholesterol 25, HDL Cholesterol 73H Laboratory Tests 05/19/20 15:48 05/20/20 03:15 A/P-Cardiology Assessment/Admission Diagnosis Chest pain of undetermined etiology, no evidence of ACS HTN HLD COPD Former tobaccoism Palpitations of undetermined etiology Symptoms suggestive of sleep apnea GERD IBS Obesity Discussion and Recomendations Based on c/o and risk factors, we advise MPI to eval perfusion We advise echo to eval structure and function Continue current medication regimen Advise out sleep study for suspected sleep apnea Monitor lab Further recs will be based on her hospital course We would like to thank Medical services for this consult Clinical Quality Measures AMI/AHF: ASA po Prior to arrival: No DVT/VTE Risk/Contraindication: Risk Factor Score Per Nursin RFS Level Per Nursing on Admit: 4+=Very High ELICIA DOS SANTOS MD FACP FAC CCDS May 20, 2020 12:28
--- NOTE | 2020-05-20 12:36 | NUR ---
PT TRANSFERRED TO [facility] VIA W/ STAFF AND PERSONAL BELONGINGS. REPORT GIVEN TO ADAM GIBBONS. NO QUESTIONS/CONCERNS VOICED.
--- NOTE | 2020-05-20 12:44 | NUR ---
REC'D PER WC FROM ICU. SEE ASSESSMENT.
[2020-05-21] VITALS (7 sets, daily range): BP systolic 144–191; BP diastolic 78–96
[2020-05-21 05:54] LABS: BUN/CREATININE RATIO 15; CALCIUM 8.1 MG/DL (8.5-10.1); CARBON DIOXIDE 23 MMOL/L (21-32); CHLORIDE 109 MMOL/L (98-107); CREATININE SERUM 0.78 MG/DL (0.60-1.30); GFR ESTIMATED > 60; GLUCOSE 94 MG/DL (70-105); MAGNESIUM 1.7 MG/DL (1.6-2.4); POTASSIUM 4.3 MMOL/L (3.6-5.0); SODIUM 140 MMOL/L (135-145)
[2020-05-21] MEDS: NS IV 1000 ML 1,000 ML IV SCH (06:04)
[2020-05-21] MEDS: ASPIRIN E.C. 325 MG (ECOTRIN) TABLET PO SCH (08:04)
[2020-05-21] MEDS: ENOXAPARIN 40 MG/0.4 ML (LOVENOX) SYR SC SCH (08:05)
[2020-05-21] MEDS ORDERED: FUROSEMIDE 40 MG/4 ML INJ (LASIX) IVP NR (09:15)
--- NOTE | 2020-05-21 09:15 | NUR ---
MANUAL BP 180/92 . [facility] NOTIFIED. ORDERS RECEIVED TO RESTART HOME MEDICATION LISINOPRIL 40MG PO. OKAY TO GIVE NOW WITH SMALL SIP OF WATER.
[2020-05-21] MEDS ORDERED: lisINopril 20 MG (PRINIVIL) TABLET PO SCH (09:30)
--- NOTE | 2020-05-21 09:54 | Progress Note - Hospitalist ---
SAM SORENSEN MED STUDENT 05/21/20 0954: Subjective HPI/CC On Admission Date Seen by Provider: May 21, 2020 Time Seen by Provider: 09:30 CC: Chest pain HPI: This is a 59yoWM clinic pt of Dr. Mason who has a history of COPD from former smoking and CHF on Lasix who presents to the ER with chest pain. Troponin was negative, and cardiology was consulted and will perform a stress test tomorrow. She denies any significant chest pain and is hungry. She appears to have SERGIO. Subjective/Events-last exam The patient has experienced the following changes since yesterday: -Andria has increased swelling today. She has not had her home Lasix of 40 -Cardiology checked in yesterday. Patient had an echo showing normal LV with 60- 65% EF, mild LA dilation, and elevated pulmonary artery BP of 25 to 30 -with pulmonary artery pressure and obesity the pt was recommended to pursue sleep study for SERGIO with Dr. Mason her PCP -Pt is awaiting MPI testing today. If that is normal, will likely return home -Pt was hypertensive this morning due to not taking home lasix and lisinopril. 170 to 190 systolic -consequently 20 mg Lasix IV given while awaiting MPI -Andria has not had pain since her time in the ER. Denies all complaints including SOB, except leg swelling -repeat CBC, BMP WNL. Calcium dropped to 8.1 from 8.8. HGB 13.6 from previous 13.4. Objective Exam Vital Signs Vital Signs Date Time Temp Pulse Resp B/P (MAP) Pulse Ox O2 Delivery O2 Flow Rate FiO2 05/21/20 08:00 36.6 65 16 191/96 (127) 96 Room Air Capillary Refill : Less Than 3 SecondsLess Than 3 Seconds General Appearance: No Apparent Distress, WD/WN HEENT: PERRL/EOMI, Normal ENT Inspection Neck: Normal Inspection Respiratory: Chest Non Tender, Lungs Clear, Normal Breath Sounds, No Accessory Muscle Use, No Respiratory Distress Cardiovascular: Regular Rate, Rhythm, No Gallop, No JVD, No Murmur, Normal Peripheral Pulses, Other (3+ BL LE Edema, more severe than yesterday. Stephoscope left <1s residual imprint on chest ) Extremity: Normal Capillary Refill, No Calf Tenderness Neurologic/Psychiatric: Alert, Oriented x3, No Motor/Sensory Deficits, Normal Mood/Affect Results/Procedures Lab Laboratory Tests 05/21/20 04:55 Patient resulted labs reviewed. Assessment/Plan Assessment and Plan Assess & Plan/Chief Complaint Assessment: 1. Chest pain 2. chronic LE edema 3. HTN on lisinopril 4. obesity 5. increased cholesterol, LDL, HDL 6. Increased pulmonary artery pressure 25 to 30 mmHg 7. likely SERGIO Plan: 1. Continue monitoring labs 2. Administer 20mg Lasix. treat any emergent issues including chest pain 3. plan for discharge home, dependent on cardiology's assessment 4. likely begin therapy for prophylaxis of cardiac events per cardiology's recommendations 5. consider sleep study after hospital discharge Clinical Quality Measures AMI/AHF: ASA po Prior to arrival: No DVT/VTE Risk/Contraindication: Risk Factor Score Per Nursin RFS Level Per Nursing on Admit: 4+=Very High SHO PICKERING DO 05/21/20 1230: Subjective HPI/CC On Admission Date Seen by Provider: May 21, 2020 Subjective/Events-last exam Pt doing well except for edema BP high because all home meds have been held Stress test today to assess source of chest pain I did talk to her about sleep apnea and she will talk to Dr. Mason her PCP regarding a sleep study Review of Systems General: Fatigue, Malaise Neurological: Weakness Objective Exam General Appearance: No Apparent Distress, WD/WN HEENT: PERRL/EOMI, TMs Normal, Normal ENT Inspection, Pharynx Normal, Moist Mucous Membranes Neck: Full Range of Motion, Normal Inspection, Non Tender, Supple, Carotid Bruit Respiratory: Chest Non Tender, Lungs Clear, Normal Breath Sounds, No Accessory Muscle Use, No Respiratory Distress Cardiovascular: Regular Rate, Rhythm, No Edema, No Gallop, No JVD, No Murmur, Normal Peripheral Pulses Gastrointestinal: Normal Bowel Sounds, No Organomegaly, No Pulsatile Mass, Non Tender, Soft Back: Normal Inspection, No CVA Tenderness, No Vertebral Tenderness Extremity: Normal Capillary Refill, Normal Inspection, Normal Range of Motion, Non Tender, No Calf Tenderness, No Pedal Edema Neurologic/Psychiatric: Alert, Oriented x3, No Motor/Sensory Deficits, Normal Mood/Affect Skin: Normal Color, Warm/Dry Lymphatic: No Adenopathy Assessment/Plan Assessment and Plan Assess & Plan/Chief Complaint 05/21/20: Discharge home as stress test negative Restart home blood pressure medications Diuresis Diagnosis/Problems Diagnosis/Problems (1) Chest pain Status: Acute Supervisory-Addendum Brief Verification & Attestation Participated in pt care: history, MDM, physical Personally performed: exam, history, MDM, supervision of care Care discussed with: Medical Student Procedures: n/a Results interpretation: Verified all documentation Verification and Attestation of Medical Student E/M Service A medical student performed and documented this service in my presence. I reviewed and verified all information documented by the medical student and made modifications to such information, when appropriate. I personally performed the physical exam and medical decision making. Sho Pickering, May 21, 2020,21:11 SAM SORENSEN MED STUDENT May 21, 2020 09:54 SHO PICKERING DO May 21, 2020 12:30
[2020-05-21] MEDS ORDERED: REGADENOSON 0.4 MG/5 ML SYR (LEXISCAN) IV ONE (12:04)
--- NOTE | 2020-05-21 13:33 | Progress Note - Cardiology ---
Cardiology SOAP Progress Note Subjective: No further c/o CP. No c/o dyspnea, palpitations. Objective: I&O/Vital Signs Constitutional: AAO x 3, well-developed, well-nourished Respiratory: No accessory muscle use, No respiratory distress; chest expansion is symmetric, chest is bilaterally symmetric, lungs clear to auscultation Cardiovascular: regular rate-rhythm; No JVD; S1 and S2 Gastrointestional: No tender; soft, audible bowel sounds Extremities: no lower extremity edema bilateral Neurologic/Psychiatric: grossly intact (moves all extremities) Skin: No rash on exposed areas, No ulcerations on exposed areas Results/Procedures: Labs A/P: Assessment: Chest pain of undetermined etiology, no evidence of ACS HTN HLD COPD Former tobaccoism Palpitations of undetermined etiology Symptoms suggestive of sleep apnea GERD IBS Obesity Plan: MPI and echocardiogram pending Continue current medication regimen Advise out sleep study for suspected sleep apnea Monitor lab Clinical Quality Measures AMI/AHF: ASA po Prior to arrival: ADIRANNE Higgins May 21, 2020 13:33
--- NOTE | 2020-05-21 16:01 | Progress Note - Cardiology ---
Cardiology SOAP Progress Note Subjective: No cp or palp or syncope or shortness of breath at rest No weakness or focal weakness No n/v/d Wishes to go home Objective: I&O/Vital Signs 05/21/20 05/21/20 05/21/20 05/21/20 04:40 07:04 08:00 08:00 Temp 36.5 36.6 Pulse 85 63 65 Resp 18 16 B/P (MAP) 169/79 (109) 191/96 (127) Pulse Ox 97 96 96 O2 Delivery Room Air Room Air Room Air 05/21/20 05/21/20 05/21/20 12:00 12:37 13:10 Temp 36.5 Pulse 80 90 78 Resp 16 16 B/P (MAP) 162/96 (118) 168/78 (108) Pulse Ox 96 97 O2 Delivery Room Air Room Air 05/21/20 00:00 Intake Total 1950 ml Balance 1950 ml Constitutional: AAO x 3, well-developed, well-nourished Respiratory: No accessory muscle use, No respiratory distress; chest expansion is symmetric, chest is bilaterally symmetric, lungs clear to auscultation Cardiovascular: regular rate-rhythm; No JVD; S1 and S2 Gastrointestional: No tender; soft, audible bowel sounds Extremities: no lower extremity edema bilateral Neurologic/Psychiatric: grossly intact (moves all extremities) Skin: No rash on exposed areas, No ulcerations on exposed areas Results/Procedures: Labs Laboratory Tests 05/21/20 04:55: Sodium Level 140, Potassium Level 4.3, Chloride Level 109H, Carbon Dioxide Level 23, Anion Gap 8, Blood Urea Nitrogen 12, Creatinine 0.78, Estimat Glomerular Filtration Rate > 60, BUN/Creatinine Ratio 15, Glucose Level 94, Calcium Level 8.1L, Magnesium Level 1.7, Thyroid Stimulating Hormone (TSH) 2.45 A/P: Assessment: Chest pain of undetermined etiology, no evidence of ACS HTN HLD COPD Former tobaccoism Palpitations of undetermined etiology Symptoms suggestive of sleep apnea GERD IBS Obesity Echo of 05/20/20: LVEF 60-65%, mild LAE, PASP 25-30 mmHg MPI of 05/21/20: no ischemia or infarction, normal LVEF Plan: Continue current medication regimen Advised outpt sleep study for suspected sleep apnea Outpt f/u advised Clinical Quality Measures AMI/AHF: ASA po Prior to arrival: No ELICIA DOS SANTOS MD FACP FACC CCDS May 21, 2020 16:01
[2020-05-21] MEDS ORDERED: meTOproloL SUCCINATE 50 MG (TOPROL XL) TAB PO NR (16:15)
--- NOTE | 2020-05-21 16:23 | NUR ---
DR PICKERING NOTIFIED OF DR DOS SANTOS NURSING COMMUNICATION. PT OKAY TO DISCHARGE PER CARDIOLOGY STANDPOINT. STRESS TEST WAS NORMAL. PT NEEDING TOPROL XL 50MG DAILY ADDED TO HOME MEDICATION REGIMEN.
[2020-05-21] MEDS ORDERED: METO50TA7 PO (16:58)
--- NOTE | 2020-05-21 18:02 | STRESS TEST ---
DATE OF SERVICE: 05/21/2020 RESTING AND POST REGADENOSON TECHNETIUM-99M TETROFOSMIN SPECT CT IMAGING ORDERING PHYSICIAN: Micaela Pak APRN PRIMARY PHYSICIAN: Dr. Mason. ATTENDING PHYSICIAN: Dr. Hernandez. OTHER PHYSICIAN: Dr. Chavarria. CLINICAL DIAGNOSIS: Chest discomfort. Baseline images were carried out after injection of 10.46 mCi of technetium-99m Tetrofosmin. This was followed by 0.4 mg regadenoson and 29.9 mCi of technetium-99m Tetrofosmin for stress imaging. The electrocardiogram showed sinus rhythm at baseline. The electrocardiogram did not change significantly with regadenoson infusion. The patient tolerated the procedure well. Review of images at rest and following stress does not indicate any significant perfusion defects consistent with significant myocardial ischemia or infarction. Gated images show normal global left ventricular systolic function with normal regional wall motion. Left ventricular ejection fraction is calculated to be 73%. Left ventricular end diastolic volume is 79 mL. TID is absent (1.04). CONCLUSIONS: 1. No evidence of any significant myocardial ischemia or infarction on this study. 2. Normal regional wall motion. 3. Normal global left ventricular systolic function with a calculated ejection fraction of 73%. Job ID: [id number] DocumentID: [id number] Dictated Date: 05/21/2020 14:43:57 Marine Engineer [employer] Date: 05/21/2020 18:01:59 Dictated By: ELICIA CHAVARRIA MD, MA, FACP, FACC,
[2020-05-22] MEDS ORDERED: meTOproloL SUCCINATE 50 MG (TOPROL XL) TAB PO SCH (09:00)
== END 2020-05-21 18:00 | disposition home or self-care (01) ==
LOC: ER FS 15:40 → ICU 19:50 → 4TH 05-20 12:36
PROVIDERS: ADMIT Internal Medicine; ATTEND Internal Medicine
DX: R07.9 Chest pain, unspecified (principal); J44.9 Chronic obstructive pulmonary disease, unspecified; I10 Essential (primary) hypertension; K21.9 Gastro-esophageal reflux disease without esophagitis; E78.5 Hyperlipidemia, unspecified; K58.9 Irritable bowel syndrome, unspecified; I11.0 Hypertensive heart disease with heart failure; I50.9 Heart failure, unspecified; R60.9 Edema, unspecified; E66.9 Obesity, unspecified; Z68.42 Body mass index [BMI] 45.0-49.9, adult; Z79.82 Long term (current) use of aspirin; Z79.899 Other long term (current) drug therapy; Z79.51 Long term (current) use of inhaled steroids; Z87.891 Personal history of nicotine dependence
CPT/HCPCS: 36415; 71045; 78452; 80048 ×2; 80053; 80061; 83735; 83880; 84443; 84484 ×3; 85025 ×2; 85379; 85610; 85730; 93005 ×3; 93017; 93306; 99284; A9502